=== PATIENT | male | born 1965 | race African-American/Black ===

== ENCOUNTER 2021-07-18 14:40 | Inpatient (IN) | payer SELFPAY ==
[~2021-07-18] VITALS: Ht 180.3 cm; Wt 115.7 kg
[2021-07-18] MEDS ORDERED: Morphine 4mg Syringe 4 MG/ML INJ IV ONE (15:15)
[2021-07-18] MEDS ORDERED: ONDANSETRON HCL INJ 2MG/ML 2ML 2 MG/ML VIAL IV PRN ×2 (15:15→16:15)
[2021-07-18 15:31] LABS: BASOPHILS # (AUTO) 0.1 (0.0-0.1); BASOPHILS % 0.9 % (0.0-1.0); EOSINOPHILS # (AUTO) 0.2 (0.0-0.4); EOSINOPHILS % 3.2 % (0.0-6.0); HEMATOCRIT 44.7 % (38.2-49.6); HEMOGLOBIN 14.8 g/dL (14.0-18.0); LYMPHOCYTES # (AUTO) 2.3 (1.0-3.2); LYMPHOCYTES % 36.2 % (18.0-39.1); MEAN CORPUSCULAR HEMOGLOBIN 27.9 pg (28-32); MEAN CORPUSCULAR HGB CONC 33.1 g/dL (31-35); MEAN CORPUSCULAR VOLUME 84.3 fL (81-99); MONOCYTES # (AUTO) 0.4 (0.2-0.8); MONOCYTES % 6.8 % (4.4-11.3); NEUTROPHILS # (AUTO) 3.3 (2.1-6.9); NEUTROPHILS % 52.4 % (38.7-80.0); PLATELET COUNT 231 x10e3/uL (140-360); RED CELL DISTRIBUTION WIDTH 13.1 % (11.7-14.4)
[2021-07-18 15:45] LABS: INR 0.84; PROTHROMBIN TIME 12.2 seconds (11.9-14.5)
[2021-07-18 15:54] LABS: ALBUMIN 4.2 g/dL (3.5-5.0); ALBUMIN/GLOBULIN RATIO 1.1 (0.8-2.0); CREATININE, SERUM 1.26 mg/dL (0.72-1.25)
[2021-07-18] MEDS ORDERED: Morphine 2mg Syringe 2 MG/ML SYR IV PRN (16:15)
[2021-07-18] MEDS ORDERED: SODIUM CHLORIDE FLUSH 10 ML SYR INJ PRN (16:15)
[2021-07-18] MEDS ORDERED: CLOPIDOGREL BISULFATE 75 MG TAB PO ONE (18:00)
[2021-07-18] MEDS ORDERED: LISINOPRIL 20 MG TAB PO ONE (18:00)
[2021-07-18 20:08] VITALS: BP 137/93
[2021-07-18] MEDS ORDERED: ACETAMINOPHEN 325 MG TAB PO PRN (20:30)
[2021-07-18 21:40] VITALS: BP 137/93
[2021-07-18] MEDS: INSULIN LISPRO 100 UNIT/1 ML 3ML VIAL SQ SCH (21:40)
[2021-07-19 01:04] LABS: CREATINE KINASE MB 1.7 ng/mL (0-5.0)
[2021-07-19] MEDS ORDERED: POTASSIUM CHLORIDE 20 MEQ TAB CR PO PRN (01:30)
[2021-07-19] MEDS ORDERED: DIPHENHYDRAMINE HCL 25 MG CAP PO PRN (01:30)
[2021-07-19] MEDS ORDERED: ALBUTEROL/IPRATROPIUM 3 ML NEB NEB PRN (01:30)
[2021-07-19] MEDS ORDERED: HYDRALAZINE HCL 20 MG/ML VIAL IV PRN (01:30)
[2021-07-19] MEDS ORDERED: BENZONATATE 100 MG CAP PO PRN (01:30)
[2021-07-19] MEDS ORDERED: MELATONIN 5 MG TABLET PO PRN (01:30)
[2021-07-19] MEDS ORDERED: SIMETHICONE 80 MG CHEW PO PRN (01:30)
[2021-07-19] MEDS ORDERED: DEXTROSE 50% SYRINGE 50 ML IV PRN (01:30)
[2021-07-19] MEDS ORDERED: DOCUSATE SODIUM 100 MG CAP PO PRN (01:30)
[2021-07-19] MEDS ORDERED: LIDOCAINE 4% PATCH TP PRN (01:30)
[2021-07-19 01:35] VITALS: BP 130/78
[2021-07-19 04:57] LABS: BASOPHILS # (AUTO) 0.1 (0.0-0.1); BASOPHILS % 0.9 % (0.0-1.0); EOSINOPHILS # (AUTO) 0.2 (0.0-0.4); EOSINOPHILS % 3.3 % (0.0-6.0); HEMOGLOBIN 15.2 g/dL (14.0-18.0); LYMPHOCYTES # (AUTO) 2.6 (1.0-3.2); LYMPHOCYTES % 37.6 % (18.0-39.1); MEAN CORPUSCULAR HEMOGLOBIN 27.7 pg (28-32); MEAN CORPUSCULAR HGB CONC 32.3 g/dL (31-35); MEAN CORPUSCULAR VOLUME 85.8 fL (81-99); MONOCYTES # (AUTO) 0.5 (0.2-0.8); MONOCYTES % 7.3 % (4.4-11.3); NEUTROPHILS # (AUTO) 3.6 (2.1-6.9); NEUTROPHILS % 50.6 % (38.7-80.0); PLATELET COUNT 226 x10e3/uL (140-360); RED BLOOD COUNT 5.48 x10e6/uL (4.3-5.7); RED CELL DISTRIBUTION WIDTH 13.2 % (11.7-14.4)
[2021-07-19 05:14] LABS: ANION GAP 14.4 mmol/L (8-16); CREATININE, SERUM 1.38 mg/dL (0.72-1.25); POTASSIUM 4.4 mmol/L (3.5-5.1)
[2021-07-19 05:43] LABS: CHOL/HDL RATIO 6.9 (3.9-4.7); CHOLESTEROL 185 MD/DL (0-199); HDL CHOLESTEROL 27 MG/DL (40-60); MAGNESIUM 1.9 MG/DL (1.3-2.1); TRIGLYCERIDES 615 MG/DL (0-149)
[2021-07-19 06:03] LABS: THYROID STIMULATING HORMONE 1.441 uIU/mL (0.350-4.940)
[2021-07-19 06:04] VITALS: BP 146/87
[2021-07-19] MEDS ORDERED: PANTOPRAZOLE SOD 40 MG TABEC PO SCH (07:30)
[2021-07-19 08:00] VITALS: BP 146/87
[2021-07-19 08:03] VITALS: BP 126/79
[2021-07-19] MEDS: INSULIN LISPRO 100 UNIT/1 ML 3ML VIAL SQ SCH ×2 (08:26→12:07)
[2021-07-19] MEDS ORDERED: CLOPIDOGREL BISULFATE 75 MG TAB PO SCH (09:00)
[2021-07-19] MEDS ORDERED: LISINOPRIL 20 MG TAB PO SCH (09:00)
[2021-07-19 09:50] LABS: CREATINE KINASE MB 1.9 ng/mL (0-5.0)
[2021-07-19 12:00] VITALS: BP 143/85
[2021-07-19] MEDS ORDERED: ENOXAPARIN SOD INJ 40 MG/0.4 ML SYR SC SCH (17:00)
[2021-07-19] MEDS ORDERED: ATORVASTATIN 20 MG TAB PO SCH (21:00)
== END 2021-07-19 13:05 | disposition left against medical advice (07) | DRG 313 ==
LOC: ER 15:56 → ERHOLD 16:17 → MED/SURG2 19:38
PROVIDERS: ADMIT Internal Medicine; ATTEND Internal Medicine
DX: R07.89 Other chest pain (principal); E11.65 Type 2 diabetes mellitus with hyperglycemia; Z91.19 Patient's noncompliance with other medical treatment and regimen; E66.01 Morbid (severe) obesity due to excess calories; Z68.35 Body mass index [BMI] 35.0-35.9, adult; I10 Essential (primary) hypertension; E78.5 Hyperlipidemia, unspecified; Z88.6 Allergy status to analgesic agent; Z20.822 Contact with and (suspected) exposure to COVID-19; F17.200 Nicotine dependence, unspecified, uncomplicated
CPT/HCPCS: 36415; 71045; 80048; 80053; 80061; 82550; 82553; 82948; 83036; 83690; 83735; 83880; 84443; 84484; 85025; 85610; 93005; 94799; 99284; J2270; J2405; U0002